=== PATIENT | female | born 1930 | race Caucasian/White ===

== ENCOUNTER 2021-02-10 16:11 | Emergency (ER) | payer MEDICARE ==
[~2021-02-10] VITALS: Ht 167.6 cm; Wt 74.5 kg
[2021-02-10 16:12] VITALS: BP 150/72
[2021-02-11] MEDS ORDERED: PERCOCET 5MG/325MG TAB PO ONE (00:50)
--- NOTE | 2021-02-11 02:48 | REPVR ---
PROCEDURE INFORMATION: Exam: XR Right Shoulder Exam date and time: 02/11/21 (1:04am) Age: 89 years old Clinical indication: Right shoulder pain TECHNIQUE: Imaging protocol: XR Right shoulder Views: 1 view COMPARISON: No relevant prior studies available FINDINGS: A single frontal view of the right shoulder is provided. No acute fracture nor dislocation. 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 Some hypertrophic bony changes also present. Diffuse bony demineralization. The visualized right lung is clear. IMPRESSION: No acute findings. 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 Electronically signed by: Zoe Cole On 02/11/2021 02:48:35 AM
[2021-02-11] MEDS ORDERED: OXYCODONE/APAP 5MG/325MG(BULK FOR ED) 1 TABLET PO ONE (03:10)
[2021-02-11] MEDS ORDERED: OXYC1TAB23 PO (03:39)
[2021-02-11] MEDS ORDERED: PERC5TAB12 PO (03:44)
== END 2021-02-11 04:00 | disposition home or self-care (01) ==
LOC: M ED 16:11
DX: S49.91XA Unspecified injury of right shoulder and upper arm, initial encounter (principal); X58.XXXA Exposure to other specified factors, initial encounter; Y92.9 Unspecified place or not applicable; Y93.9 Activity, unspecified; Y99.9 Unspecified external cause status; E11.9 Type 2 diabetes mellitus without complications; I10 Essential (primary) hypertension; Z85.3 Personal history of malignant neoplasm of breast; Z90.11 Acquired absence of right breast and nipple; Z92.3 Personal history of irradiation; F95.2 Tourette's disorder; Z87.891 Personal history of nicotine dependence; Z88.2 Allergy status to sulfonamides